=== PATIENT | male | born 1960 | race Caucasian/White ===

== ENCOUNTER 2018-07-16 04:37 | Emergency (ER) | payer MEDICARE ==
[2018-07-16] MEDS ORDERED: Sulfamethoxazole/Trimethoprim 800-160 MG Tab PO ONE (05:43)
[2018-07-16] MEDS ORDERED: Loratadine 10 MG Tab PO ONE (05:43)
--- NOTE | 2018-07-16 05:49 | EDM.PDOC ---
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 cough, rhinorrhea, inc'd ST at night no f/c/d denies hayfever wants antbx worried re strep coughs up "green" throat Pain Score (Numeric/FACES): 9 - Related Data Allergies Allergy/AdvReac Type Severity Reaction Status Date / Time acetaminophen Allergy Hives Verified 07/16/18 04:58 [From Darvocet-N] cyclobenzaprine Allergy Hives Verified 07/16/18 04:58 [From Flexeril] egg Allergy Nausea and Verified 07/16/18 04:58 Vomiting hydroxyzine [From Vistaril] Allergy Hives Verified 07/16/18 04:58 latex Allergy Blisters Verified 07/16/18 04:58 propoxyphene Allergy Hives Verified 07/16/18 04:58 [From Darvocet-N] Home Meds: Home Meds Betaxolol HCl [Betaxolol] 10 mg PO BID 10/22/16 [History] Celecoxib [CeleBREX] 200 mg PO DAILY 10/22/16 [History] Codeine Sulfate 30 mg PO BEDTIME PRN 10/22/16 [History] Hydrocodone/Acetaminophen [Hydrocodon-Acetaminophen 5-325] 1 each PO BEDTIME 01/03 [History] Loratadine 10 mg PO DAILY #30 tablet 07/16/18 [Rx] Sulfamethoxazole/Trimethoprim [Bactrim Ds Tablet] 1 each PO BID #10 tablet 07/16 [Rx] Past Medical History Cardiovascular History: Reports: Hypertension Other Cardiovascular History: HX OF CVD Other Respiratory History: HX UPPER RESPIRATORY INFECTION Gastrointestinal History: Reports: Colon Polyp [employer] 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 Musculoskeletal History: Reports: Arthritis Dermatologic History: Reports: Psoriasis - Infectious Disease History Infectious Disease History: Reports: Chicken Pox, Mumps - Past Surgical History Other HEENT Surgeries/Procedures: THORACIC FUSION GI Surgical History: Reports: Hernia Repair/Other Other Musculoskeletal Surgeries/Procedures:: BACK SURGERY Social & Family History - Family History Family Medical History: Noncontributory - Tobacco Use Smoking Status *Q: Former Smoker Used Tobacco, but Quit: Yes Month/Year Tobacco Last Used: 168 - Caffeine Use Caffeine Use: Reports: Coffee, Soda - Recreational Drug Use Recreational Drug Use: No ED ROS ENT - Review of Systems Review Of Systems: See Below Constitutional: Reports: No Symptoms. Denies: Fever HEENT: Reports: Throat Pain Respiratory: Reports: No Symptoms Endocrine: Reports: No Symptoms GI/Abdominal: Reports: No Symptoms : Reports: No Symptoms Musculoskeletal: Reports: No Symptoms Skin: Reports: No Symptoms Neurological: Reports: No Symptoms Psychiatric: Reports: No Symptoms Hematologic/Lymphatic: Reports: No Symptoms Immunologic: Reports: No Symptoms ED EXAM, ENT - Physical Exam Exam: See Below Exam Limited By: No Limitations General Appearance: Alert, WD/WN, No Apparent Distress Ears: Normal External Exam, Normal Canal, Hearing Grossly Normal, Normal TMs Nose: Normal Inspection, Normal Mucousa, No Blood, Other (mild swell b/l) Mouth/Throat: Other (o-p neg, neck supple no LNs) Head: Atraumatic Neck: Normal Inspection, Supple, Non-Tender, Full Range of Motion. No: Lymphadenopathy (R), Lymphadenopathy (L) Respiratory/Chest: No Respiratory Distress, Lungs Clear, Normal Breath Sounds, No Accessory Muscle Use, Chest Non-Tender Cardiovascular: Regular Rate, Rhythm, No Edema, No Gallop, No JVD, No Murmur, No Rub GI/Abdominal: Soft, Non-Tender Back: Normal Inspection, Full Range of Motion Extremities: Normal Inspection, Normal Range of Motion, Non-Tender, No Pedal Edema Neurological: Alert, Oriented, CN II-XII Intact, Normal Cognition, No Motor/ Sensory Deficits Psychiatric: Normal Affect, Normal Mood Skin: Warm, Dry, Intact, Normal Color, No Rash Lymphatic: No Adenopathy Course - Vital Signs Last Recorded V/S: Last Vital Signs Temp 36.4 C 07/16/18 04:37 Pulse 71 07/16/18 04:37 Resp 18 07/16/18 04:37 BP 136/73 07/16/18 04:37 Pulse Ox 96 07/16/18 04:37 - Orders/Labs/Meds Orders: Active Orders 24 hr Category Date Time Status CULTURE STREP A CONFIRMATION [RM] Stat Lab 07/16/18 05:07 Results STREP SCRN A RAPID W CULT CONF [RM] Stat Lab 07/16/18 05:07 Results Loratadine [Claritin] Med 07/16/18 05:43 Once 10 mg PO ONETIME ONE Sulfamethoxazole/Trimethoprim [Septra DS] Med 07/16/18 05:43 Once 1 tab PO ONETIME ONE Departure - Departure Time of Disposition: 05:44 Disposition: Home, Self-Care 01 Condition: Good Clinical Impression: Sore throat - Discharge Information *PRESCRIPTION DRUG MONITORING PROGRAM REVIEWED*: Not Applicable *COPY OF PRESCRIPTION DRUG MONITORING REPORT IN PATIENT DAYDAY: Not Applicable Prescriptions: Loratadine 10 mg PO DAILY #30 tablet Sulfamethoxazole/Trimethoprim [Bactrim Ds Tablet] 1 each PO BID #10 tablet Instructions: Sore Throat Referrals: Michael Mills MD [Primary Care Provider] - Additional Instructions: For drainage, take loratadine 10 mg 1 tab daily. For infection, take Bactrim DS 1 tab 2 times a day for 5 days. See your doctor in 4-5 days if you are not better. Use good handwashing. - My Orders Last 24 Hours: My Active Orders 07/16/18 05:07 CULTURE STREP A CONFIRMATION [RM] Stat STREP SCRN A RAPID W CULT CONF [RM] Stat 07/16/18 05:43 Loratadine [Claritin] 10 mg PO ONETIME ONE Sulfamethoxazole/Trimethoprim [Septra DS] 1 tab PO ONETIME ONE - Assessment/Plan Last 24 Hours: My Active Orders 07/16/18 05:07 CULTURE STREP A CONFIRMATION [RM] Stat STREP SCRN A RAPID W CULT CONF [RM] Stat 07/16/18 05:43 Loratadine [Claritin] 10 mg PO ONETIME ONE Sulfamethoxazole/Trimethoprim [Septra DS] 1 tab PO ONETIME ONE
[2018-07-16 06:08] VITALS: BP 127/72
== END 2018-07-16 05:58 | disposition home or self-care (01) ==
LOC: FB.ED 04:37
DX: J02.9 Acute pharyngitis, unspecified (principal); I10 Essential (primary) hypertension; Z87.891 Personal history of nicotine dependence; Z79.899 Other long term (current) drug therapy; Z88.8 Allergy status to other drugs, medicaments and biological substances; Z91.040 Latex allergy status
CPT/HCPCS: 87081; 87880; 99283; A9270

== ENCOUNTER 2020-05-25 08:21 | Day surgery (SDC) | payer MEDICARE ==
[2020-05-25] MEDS ORDERED: Propofol 200 MG/20 ML SDV IV ONE (08:22)
[2020-05-25] MEDS ORDERED: Ketamine 500 mg/10 ML MDV IV ONE (08:22)
[2020-05-25] MEDS ORDERED: Midazolam 1 MG/ML 2 ML SDV IV ONE (08:22)
[2020-05-25] MEDS ORDERED: Sodium Chloride 0.9% 10 ML Syringe FLUSH PRN (08:45)
[2020-05-25] MEDS: Lactated Ringers 1,000 ML IV SCH (09:09)
--- NOTE | 2020-05-25 10:08 | PCM.OPNOTE ---
- General Post-Op/Procedure Note Date of Surgery/Procedure: 05/25/20 Operative Procedure(s): c scope with bx Findings: transverse colon polyp 4 mm descending colon polyp 4 mm Pre Op Diagnosis: personal hx of colon polyps Post-Op Diagnosis: transverse colon polyp 4 mm. descending colon polyp 4 mm Anesthesia Technique: MAC Primary Surgeon: Bryan rOtega Anesthesia Provider: Amirah Hammer Pathology: transverse colon polyp 4 mm descending colon polyp 4 mm Complications: None Condition: Good Free Text/Narrative:: see dictation
[2020-05-25 10:25] VITALS: BP 115/63; PULSE 79
--- NOTE | 2020-05-29 11:12 | OR ---
DATE OF OPERATION: 05/25/2020 SURGEON: Bryan Ortega MD PROCEDURE PERFORMED: Colonoscopy with cold forceps biopsy. PREOPERATIVE DIAGNOSIS: Personal history of colon polyps. POSTOPERATIVE DIAGNOSIS: Polyp of the descending as well as transverse colon. INDICATIONS FOR PROCEDURE: Mr. Quezada underwent a colonoscopy approximately a year ago, had greater than 4 adenomatous polyps removed. He presents now for a followup at the 1-year point. DESCRIPTION OF OPERATION: After an excellent IV sedation was administered, digital rectal exam was performed. No marked abnormality was noted. Flexible colonoscope was inserted and advanced to cecum. The prep was excellent. The following findings were noted: Ascending colon, unremarkable. Transverse colon, a small 4 mm polyp at the distal transverse, biopsied with cold biopsy forceps and sent for permanent. Descending colon, small polyp at the descending colon, again roughly 4 mm in size, biopsied and submitted. The sigmoid was unremarkable. The rectum and anus were unremarkable. The patient tolerated the procedure well. Results will be sent to the patient via letter. /[id number] /KEVIN
== END 2020-05-25 11:10 | disposition home or self-care (01) ==
LOC: FB.SDS 08:21
PROVIDERS: ATTEND Surgery
DX: D12.3 Benign neoplasm of transverse colon (principal); D12.4 Benign neoplasm of descending colon; I10 Essential (primary) hypertension; E11.9 Type 2 diabetes mellitus without complications; Z79.84 Long term (current) use of oral hypoglycemic drugs; Z88.8 Allergy status to other drugs, medicaments and biological substances; Z91.012 Allergy to eggs; Z91.040 Latex allergy status; Z79.899 Other long term (current) drug therapy
CPT/HCPCS: 00811-QZ; 82962; 88305; J2250; J2704; J7120